=== PATIENT | male | born 1995 | race African-American/Black ===

== ENCOUNTER 2020-04-11 15:08 | Emergency (ER) | payer MEDICAID ==
[~2020-04-11] VITALS: Ht 188 cm; Wt 89.0 kg
[~2020-04-11 15:08] MED LIST: none reported
[2020-04-11] MEDS ORDERED: LORAZEPAM 2MG/ML CPJ IV STA (15:57)
[2020-04-11 16:42] LABS: BASOPHILS % 0.4 % (0.0-2.0); EOSINOPHILS % 0.8 % (0.0-5.0); HEMATOCRIT. 42.1 % (42.0-52.0); HEMOGLOBIN. 14.1 g/dL (14.0-18.0); LYMPHOCYTES % 26.6 % (20.0-50.0); MEAN CORPUSCULAR HEMOGLOBIN 29.6 pg (28.0-32.0); MEAN CORPUSCULAR VOLUME 88.2 fL (80.0-94.0); MEAN PLATELET VOLUME 7.9 fl (7.4-10.4); MONOCYTES % 12.7 % (2.0-8.0); NEUTROPHILS % 59.5 % (40.0-76.0); PLATELET 230 x1000/uL (130-400); RED BLOOD CELL COUNT 4.77 mill/uL (4.7-6.1); RED CELL DISTRIBUTION WIDTH 12.1 % (11.6-14.6)
[2020-04-11 16:47] LABS: CHLORIDE 106 mEq/L (98-107)
[2020-04-11 16:50] LABS: ETHANOL BLOOD < 10 mg/dL
[2020-04-11 20:00] LABS: CLARITY URINE CLEAR (CLEAR); COLOR URINE YELLOW (YELLOW); KETONES URINE NEGATIVE (NEGATIVE); LEUKOCYTE ESTERASE URINE NEGATIVE (NEGATIVE); NITRITE URINE NEGATIVE (NEGATIVE); OCCULT BLOOD URINE NEGATIVE (NEGATIVE); PH URINE >=9.0 (4.5-8.0); PROTEIN URINE NEGATIVE (NEGATIVE); SPECIFIC GRAVITY URINE 1.013 (1.005-1.030); UROBILINOGEN URINE 0.2 E.U./dL (0.2-1.0)
[2020-04-11 20:37] LABS: *AMPHETAMINES SCREEN URINE NEGATIVE (NEGATIVE); *BARBITURATES SCREEN URINE NEGATIVE (NEGATIVE); *BENZODIAZEPINES SCREEN URINE NEGATIVE (NEGATIVE); *COCAINE SCREEN URINE NEGATIVE (NEGATIVE); CANNABINOID URINE SCREEN NEGATIVE (NEGATIVE); METHADONE URINE SCREEN NEGATIVE (NEGATIVE); OPIATES URINE SCREEN NEGATIVE (NEGATIVE); PHENCYCLIDINE URINE SCREEN NEGATIVE (NEGATIVE)
[2020-04-13 09:00] VITALS: BP 125/80
[2020-04-13] MEDS ORDERED: LORAZEPAM 2MG/ML CPJ IV ONE (13:30)
== END 2020-04-13 15:52 | disposition home or self-care (01) ==
LOC: ER 15:08
DX: F22 Delusional disorders (principal); R00.2 Palpitations; E86.0 Dehydration; R62.7 Adult failure to thrive; Z20.822 Contact with and (suspected) exposure to COVID-19; Z73.6 Limitation of activities due to disability; R62.50 Unspecified lack of expected normal physiological development in childhood; F81.9 Developmental disorder of scholastic skills, unspecified; F12.90 Cannabis use, unspecified, uncomplicated; Z75.1 Person awaiting admission to adequate facility elsewhere; Z68.25 Body mass index [BMI] 25.0-25.9, adult
CPT/HCPCS: 36415; 71045; 80053; 80305; 80307; 80320; 80329; 81003; 82962; 85025; 86850; 86900; 86901; 93005; 96374; 99285; J2060; 86920; A4315; G0480

== ENCOUNTER 2024-09-11 02:07 | Emergency (ER) | payer MEDICAID ==
[~2024-09-11] VITALS: Ht 182.9 cm; Wt 87.0 kg
[2024-09-11 02:27] VITALS: O2SAT 99
[2024-09-11 02:28] VITALS: BP 140/94; PULSE 77; RESP 18; TEMP 36.7; O2SAT 98
[2024-09-11] MEDS: FLUORESCEIN SODIUM 1MG/STRIP EACHEYE ONE (03:13)
[2024-09-11] MEDS: TETRACAINE 0.5% OPHTH DROPS 4ML BOTHEYE ONE (03:13)
[2024-09-11] MEDS: ACETAMINOPHEN 325MG TABLET PO ONE (03:16)
[2024-09-11] MEDS ORDERED: ACET-2708 MT (03:16)
== END 2024-09-11 03:35 | disposition home or self-care (01) ==
LOC: ER 02:07
DX: T15.90XA Foreign body on external eye, part unspecified, unspecified eye, initial encounter (principal); I10 Essential (primary) hypertension; Z00.00 Encounter for general adult medical examination without abnormal findings; X58.XXXA Exposure to other specified factors, initial encounter; Y93.89 Activity, other specified; Y92.89 Other specified places as the place of occurrence of the external cause; Y99.8 Other external cause status
CPT/HCPCS: 99283